=== PATIENT | male | born 1955 | race Caucasian/White ===

== ENCOUNTER 2023-04-03 09:47 | Outpatient (CLI) | payer MEDICARE ==
[2023-04-03] MEDS ORDERED: iohexol 350MG/ML 100ml bottle IV ONE (09:58)
[2023-04-03] MEDS ORDERED: iohexol 350 MG/ML 50ML vial IV ONE (09:58)
== END 2023-04-03 23:59 | disposition home or self-care (01) ==
LOC: RAD 09:47
PROVIDERS: ATTEND Internal Medicine Interventional Cardiology
DX: I65.23 Occlusion and stenosis of bilateral carotid arteries (principal); I25.10 Atherosclerotic heart disease of native coronary artery without angina pectoris; I70.0 Atherosclerosis of aorta; I70.213 Atherosclerosis of native arteries of extremities with intermittent claudication, bilateral legs; E78.5 Hyperlipidemia, unspecified
CPT/HCPCS: 75635; J3490; Q9967